=== PATIENT | male | born 1970 ===

== ENCOUNTER 2017-08-27 23:45 | Emergency (ER) | payer OTHER ==
--- NOTE | 2017-08-27 23:54 | EDPHY ---
H & P HPI/ROS: HPI CHIEF COMPLAINT: Syncope alcohol intoxication, marijuana HISTORY OF PRESENT ILLNESS: Patient very pleasant 47-year-old male he denies having any significant medical history presents emergency room after he had a syncopal episode. Patient states that he was trying to catch his hamster that ran under the up in. When he reached down under the up any cut his hand on the metal bottom of the oven. He states he was bleeding significantly. He went upstairs and felt lightheaded got tunnel vision laid down and had a syncopal episode. No fall or head strike. Denies chest pain or shortness of breath or palpitations. He states he had a full bottle wine. Additionally smoked marijuana. [place] lightheaded. He arrives to the emergency room by EMS. He does state he feels lightheaded. No palpitations chest pain or shortness of breath. Denies a history of cardiovascular disease. Past Medical History: Denies medical history Past Surgical History: Denies surgical history Social History: States he drank alcohol this evening, smokes marijuana. 1 bottle wine. Denies other illicit drugs. Family History: Noncontributory ROS REVIEW OF SYSTEMS: A comprehensive 10 point review of systems is otherwise negative aside from elements mentioned in the history of present illness. Exam Constitutional appears well nontoxic no acute distress, triage nursing summary reviewed, vital signs reviewed, awake/alert. Eyes normal conjunctivae and sclera, EOMI, PERRLA. HENT normal inspection, atraumatic, moist mucus membranes, no epistaxis, neck supple/ no meningismus, no raccoon eyes. Respiratory clear to auscultation bilaterally, normal breath sounds, no respiratory distress, no wheezing. Cardiovascular rate normal, regular rhythm, no murmur, no edema, distal pulses normal. Gastrointestinal soft, non-tender, no rebound, no guarding, normal bowel sounds, no distension, no pulsatile mass. Genitourinary no CVA tenderness. Musculoskeletal no midline vertebral tenderness, full range of motion, no calf swelling, no tenderness of extremities, no meningismus, good pulses, neurovascularly intact. Skin pink, warm, & dry, no rash, skin atraumatic. Neurologic awake, alert and oriented x 3, AAOx3, moves all 4 extremities equally, motor intact, sensory intact, CN II-XII intact, normal cerebellar, normal vision, normal speech. Psychiatric normal mood/affect. Heme/Lymph/Immune no lymphadenopathy. Differential Diagnosis: Includes but is not limited to in a particular order vasovagal syncope, orthostatic syncope, dehydration, electrolyte disturbance, alcohol intoxication, marijuana intoxication, cardiac arrhythmia, need for tetanus shot, will clean his wounds. Medical Decision Making: Plan for this patient full monitor tech obtain EKG , IV fluid bolus 1 L normal saline, check alcohol level, monitor on monitor tech, clean his finger wounds, and update tetanus. Re-evaluate. Re-evaluation: EKG interpretation by me on record in [employer] system. Impression time of EKG 0003: This is sinus rhythm rate of 86. I do not appreciate any signs of acute ischemia. There is incomplete right bundle-branch block. No ST elevation. No ST depression. No significant T-wave abnormalities. No signs of Brugada or WPW. No prolonged intervals. 1240: Serum alcohol level on 115. 0210: Patient ambulated well throughout the emergency room with a steady gait. Has no difficulty ambulating. He feels much better after IV fluids. Most likely cause of syncope is a combination of marijuana intoxication, alcohol intoxication, positional changes, dehydration. Recommend he stays well hydrated drink lots of fluid. Distally return to the emergency room if he has worsening symptoms includes chest pain, shortness of breath, syncope. He understands. Source: Patient, EMS Constitutional: Initial Vital Signs Temperature (C) 36.6 C 08/27/17 23:53 Heart Rate 84 08/27/17 23:53 Respiratory Rate 16 08/27/17 23:53 Blood Pressure 95/68 L 08/27/17 23:53 O2 Sat (%) 94 08/27/17 23:53 O2 Delivery Mode Room Air Allergies/Adverse Reactions: No Known Allergies Allergy (Unverified 08/27/17 23:56) Home Medications: Medication Instructions Recorded NK [No Known Home Meds] 08/27/17 Medical Decision Making - Data Points Laboratory Results: Laboratory Results 08/27/17 23:53 08/27/17 23:53 08/27/17 08/27/17 23:53 23:53 WBC 10.93 10^3/uL H 10^3/uL (3.80-9.50) RBC 4.65 10^6/uL 10^6/uL (4.40-6.38) Hgb 14.4 g/dL g/dL (13.7-17.5) Hct 43.0 % % (40.0-51.0) MCV 92.5 fL fL (81.5-99.8) MCH 31.0 pg pg (27.9-34.1) MCHC 33.5 g/dL g/dL (32.4-36.7) RDW 12.0 % % (11.5-15.2) Plt Count 310 10^3/uL 10^3/uL (150-400) MPV 11.2 fL fL (8.7-11.7) Neut % (Auto) 47.7 % % (39.3-74.2) Lymph % (Auto) 42.6 % % (15.0-45.0) [place] % (Auto) 7.1 % % (4.5-13.0) Eos % (Auto) 1.3 % % (0.6-7.6) Baso % (Auto) 0.5 % % (0.3-1.7) Nucleat RBC Rel Count 0.2 % % (0.0-0.2) Absolute Neuts (auto) 5.20 10^3/uL 10^3/uL (1.70-6.50) Absolute Lymphs (auto) 4.66 10^3/uL H 10^3/uL (1.00-3.00) Absolute Monos (auto) 0.78 10^3/uL 10^3/uL (0.30-0.80) Absolute Eos (auto) 0.14 10^3/uL 10^3/uL (0.03-0.40) Absolute Basos (auto) 0.06 10^3/uL 10^3/uL (0.02-0.10) Absolute Nucleated RBC 0.02 10^3/uL H 10^3/uL (0-0.01) Immature Gran % 0.8 % % (0.0-1.1) Immature Gran # 0.09 10^3/uL 10^3/uL (0.00-0.10) Sodium 143 mEq/L mEq/L (135-145) Potassium 3.9 mEq/L mEq/L (3.5-5.2) Chloride 106 mEq/L mEq/L (97-110) Carbon Dioxide 20 mEq/l L mEq/l (22-31) Anion Gap 17 mEq/L H mEq/L (8-16) BUN 17 mg/dL mg/dL (7-23) Creatinine 1.3 mg/dL mg/dL (0.7-1.3) Estimated GFR 59 Glucose 131 mg/dL H mg/dL (70-100) Calcium 9.5 mg/dL mg/dL (8.5-10.4) Ethyl Alcohol 115 mg/dL H mg/dL (0-10) Medications Given: Discontinued Medications Diphtheria/Tetanus/Acell Pertussis (Boostrix) 0.5 ml IM .ONCE ONE Stop: 08/28/17 00:40 Last Admin: 08/28/17 00:53 Dose: 0.5 ml Sodium Chloride (Ns) 1,000 mls @ 0 mls/hr IV EDNOW ONE; Wide Open PRN Reason: Protocol Stop: 08/27/17 23:58 Last Admin: 08/28/17 00:08 Dose: 1,000 mls Sodium Chloride (Ns) 1,000 mls @ 0 mls/hr IV ONCE ONE PRN Reason: Wide Open Stop: 08/28/17 00:01 Last Admin: 08/28/17 00:09 Dose: 1,000 mls Departure - Departure Disposition: Home, Routine, Self-Care Clinical Impression: Dehydration Alcoholic intoxication Qualifiers: Complication of substance-induced condition: uncomplicated Qualified Code(s): F10.920 - Alcohol use, unspecified with intoxication, uncomplicated Syncope Qualifiers: Syncope type: unspecified Qualified Code(s): R55 - Syncope and collapse Marijuana intoxication Qualifiers: Complication of substance-induced condition: uncomplicated Qualified Code(s): F12.920 - Cannabis use, unspecified with intoxication, uncomplicated Condition: Good Instructions: Dehydration (ED), Syncope (ED), Alcohol Intoxication (ED) Referrals: Patient,NotPresent [Unknown] - As per Instructions
[2017-08-27 23:56] VITALS: RESP 16; TEMP 97.9; O2SAT 94
[2017-08-27] MEDS ORDERED: NS 1,000 ML IV ONE (23:57)
[2017-08-28] MEDS ORDERED: NS 1,000 ML IV ONE
--- NOTE | 2017-08-28 00:05 | CPEKG ---
Heart Rate: 86 RR Interval: 698 P-R Interval: 168 QRSD Interval: 108 QT Interval: 364 QTC Interval: 436 P [place]: 5 QRS [place]: 70 T Wave [place]: 19 EKG Severity - ABNORMAL ECG - EKG Impression: SINUS RHYTHM EKG Impression: INCOMPLETE RIGHT BUNDLE BRANCH BLOCK EKG Impression: BORDERLINE INFERIOR Q WAVES Electronically Signed By: Maynor Calle 28-Aug-2017 06:16:49
[2017-08-28] MEDS ORDERED: TDAP ADULT 0.5 ML INJ (BOOSTRIX) IM ONE (00:39)
[2017-08-28 00:50] LABS: PLATELET COUNT 310 10^3/uL (150-400)
[2017-08-28 00:58] VITALS: BP 118/76; PULSE 100
== END 2017-08-28 02:21 | disposition home or self-care (01) ==
DX: R55 Syncope and collapse (principal); F10.920 Alcohol use, unspecified with intoxication, uncomplicated; F12.920 Cannabis use, unspecified with intoxication, uncomplicated; E86.9 Volume depletion, unspecified; E86.0 Dehydration; Z23 Encounter for immunization
CPT/HCPCS: G0480